=== PATIENT | female | born 1940 | race Caucasian/White ===

== ENCOUNTER 2021-10-12 13:50 | Inpatient (IN) | payer OTHER ==
[~2021-10-12] VITALS: Ht 160 cm; Wt 60.8 kg
--- NOTE | ~2021-10-12 | EMS ---
[address] [address] EMS Patient Care Report Name: LUNA TANG Room #: 217-P ADM IN M.R.#: [id number] Admission: 10/12/21 Attend Phys: Ronnell Darling MD Discharge: Date of : 44 Report #: [id number] THIS REPORT FOR: //name// Report Transmitted: 10/13/2021 15:04 EMS Care Summary [place], [place] Incident [id number] @ 10/12/2021 12:58 Incident Location [address] [facility] OFF[facility] Patient LUNA TANG Female, 81 Years 1940 Patient Address [address] [facility] [place] [address] Patient History Epilepsy,Hypertension (HTN),Parkinson's Disease,Constipation,Chronic Kidney Disease,Insomnia, Patient Allergies No known allergies, Patient Medications Keppra, Aspirin, Benadryl, Oxybutynin, Carbidopa, Chief Complaint HYPOTENSION Disposition Transported No Lights/[place] Dispatch Reason Sick Person Transported To [facility] Narrative M30 RESPONDED TO A SICK PERSON. ON SCENE M30 FOUND A 81 YR OLD FEMALE SITTING ON A WHEELCHAIR IN THE OFFICE AT THE JAIL. STAFF STATED THAT THE FEMALE [address] [address] EMS Patient Care Report Name: LUNA TANG Room #: 217-P [facility] IN [place].#: [id number] Admission: 10/12/21 Attend Phys: Ronnell Darling MD Discharge: Date of : 44 Report #: [id number] WAS GETTING A VITALS CHECK AND FOUND HER HYPOTENSIVE. FEMALE WAS A&0X1, WHICH PER STAFF IS NORMAL TO HER. PT WAS NOT IN ANY DISTRESS OR DISCOMFORT. NO TRAUMA OR BLEEDING NOTED OR REPORTED. STAFF ADDED THAT THE PT HAS KNOWN HYPERTENSION . FIRST RESPONDERES ON SCENE PERFORMED A [place] STROKE SCALE WITHOUT ANY SIGNIFICANT FINDINGS AT THE TIME. PT'S OXYGEN STATS WERE 85 % ON ROOM AIR. OXYGEN THERAPY WAS INITIATED. PT WAS CARRIED AND PLACE IN STRETCHER. PT WAS SECURED WITH SEATBELTS AND MOVED TO AMBULANCE. PT'S CONDITION REMAINED UNCHANGED IT WAS CLOSELY MONITORED DURING TRANSPORT TO [facility]. PT CARE WAS TRANSFERRED TO ER STAFF IN ROOM 04. PT WAS MOVED TO BED BY ER AND EMS STAFF. PT WAS LEFT IN BED WITH RAILS UP ND IN THELOCKED POSITION, AND UNDER RN CARE. Initial Vitals @13:31P: 74,BP: 53/39,SpO2: 85, @13:14P: 92,R: 16,BP: 70/46,Pain: 0/10,GCS: 15,SpO2: 75,Revised Trauma: 10, Assessments @13:07MENTAL:Person Oriented,SKIN:HEENT:Head/Face: No Abnormalities,LUNG SOUNDS:General: No Abnormalities,Left Upper: No Abnormalities,Right Upper: No Abnormalities,Left Lower: No Abnormalities,Right Lower: No Abnormalities,ABDOMEN:General: No Abnormalities,Left Upper: No Abnormalities,Right Upper: No Abnormalities,Left Lower: No Abnormalities,Right Lower: No Abnormalities,PELVIS//GI:No Abnormalities,EXTREMITIES:Left Arm: No Abnormalities,Right Arm: No Abnormalities,Left Leg: No Abnormalities,Right Leg: No Abnormalities,PULSE:NEURO:No Abnormalities, Impression Hypertension Procedures @13:07 ALS Assessment Response: UnchangedSucceeded @13:17 Oxygen FlowRate: 4 Device: Nasal Cannula (NC) Response: UnchangedSucceeded @13:21 IV Therapy - Saline Lock 0cc (22 ga) Site: Hand-Left Response: UnchangedFailed @13:19 3-Lead ECG Response: UnchangedSucceeded @13:20 IV Therapy - Saline Lock 0cc (22 ga) Site: Hand-Right Response: UnchangedFailed Timeline 12:57,Call Received 12:57,Dispatch Notified 12:58,Dispatched 12:59,En Route 13:05,[place] [address] EMS Patient Care Report Name: LUNA TANG Room #: 217-P ADM IN .R.#: [id number] Admission: 10/12/21 Attend Phys: Ronnell Darling MD Discharge: Date of : 44 Report #: [id number] 13:07,At Patient 13:07,ALS Assessment,Response: UnchangedSucceeded, 13:14,BP: 70/46 M,PULSE: 92,RR: 16 R,SPO2: 75 Ox,ETCO2: ,BG: ,PAIN: 0,GCS: 15, 13:17,Oxygen FlowRate: 4 Device: Nasal Cannula (NC) Response: UnchangedSucceeded, 13:19,3-Lead ECG,Response: UnchangedSucceeded, 13:20,IV Therapy - Saline Lock 0cc 22 ga Site: Hand-Right,Response: UnchangedFailed, 13:21,IV Therapy - Saline Lock 0cc 22 ga Site: Hand-Left,Response: UnchangedFailed, 13:31,BP: 53/39 M,PULSE: 74,RR: R,SPO2: 85 Ox,ETCO2: ,BG: ,PAIN: ,GCS: , 13:32,Depart Scene 13:45,At Destination 14:14,Call Closed Disclaimer v1.1 Copyright 2021 [employer] This EMS Care Summary contains data elements from the applicable legal record (which may be displayed differently). It is designed to provide pertinent information for the following purposes: continuity of care, clinical quality, and state data reporting. The complete legal record is available to ED staff and administrators of the receiving hospital in [employer] Patient Tracker. All data is provided "as is."
[2021-10-12 13:51] VITALS: BP 87/55
[2021-10-12] MEDS ORDERED: ASA81BEC PO (13:59)
[2021-10-12] MEDS ORDERED: BENADRYL25 MG PO (13:59)
[2021-10-12] MEDS ORDERED: CARBIDOPA-LEVO1 EAC9 PO (14:00)
[2021-10-12] MEDS ORDERED: SYNTHROID125 MC1 PO (14:00)
[2021-10-12] MEDS ORDERED: KEPPRA 500 MG500 MG PO (14:00)
[2021-10-12] MEDS ORDERED: MIRALAX17 G1 PO (14:00)
[2021-10-12] MEDS ORDERED: OXYBUTYNIN 5 MG5 M2 PO (14:01)
[2021-10-12] MEDS ORDERED: VITAMIN D325 MC3 PO (14:01)
[2021-10-12 14:26] LABS: ABSOLUTE NEUTROPHILS 5.7 thou/uL (1.4-8.2); BASOPHILS 1.1 % (0.0-2.0); EOSINOPHILS 0.1 % (0.0-3.0); HEMATOCRIT 35.4 % (37.0-47.0); HEMOGLOBIN 11.5 gm/dL (12.0-15.0); LYMPHOCYTES 17.6 % (24.0-44.0); MCH 31.9 pg (26.0-34.0); MCHC 32.5 g/dL (28.0-37.0); MONOCYTES 6.6 % (1.0-8.0); PLATELET COUNT 273 thou/uL (150-400); POLYS 74.6 % (36.0-66.0); RBC 3.61 mil/uL (4.20-5.00); RDW 20.6 % (10.5-14.5); WBC 7.6 thou/uL (4.0-11.0)
[2021-10-12 14:38] LABS: URINE BILIRUBIN NEGATIVE (Negative); URINE BLOOD 2+ (Negative); URINE CLARITY SL CLOUDY; URINE COLOR YELLOW; URINE GLUCOSE-RANDOM* NEGATIVE (Negative); URINE KETONES TRACE (Negative); URINE LEUKOCYTES-REFLEX NEGATIVE (Negative); URINE NITRITE-REFLEX NEGATIVE (Negative); URINE PROTEIN (DIPSTICK) 2+ (Negative); URINE SPECIFIC GRAVITY 1.025 (1.005-1.035); URINE UROBILINOGEN 0.2 E.U./dl (0.2-1.0)
[2021-10-12 14:46] LABS: CALCIUM 9.7 mg/dL (8.5-10.1); POTASSIUM 3.4 mmol/L (3.5-5.1)
[2021-10-12 14:47] LABS: ANISOCYTOSIS 1+; PLATELET ESTIMATE NORMAL
[2021-10-12 14:48] LABS: SQUAMOUS 4-10 Moderate /LPF (0-3)
[2021-10-12 14:49] LABS: URINE RBC 3-10 Few /HPF (NONE SEEN); URINE WBC-REFLEX 0-5 Rare /HPF (0-5)
[2021-10-12 14:50] LABS: CRYSTALS None Seen /LPF (None Seen); FINE GRANULAR CASTS 0-3 Few /LPF (None Seen); HYALINE CASTS 0-3 Few /LPF (None Seen)
[2021-10-12 14:54] LABS: ALBUMIN 3.3 g/dL (3.4-5.0); DIRECT BILIRUBIN 0.4 mg/dL (<0.1-0.2); TOTAL BILIRUBIN 1.5 mg/dL (0.2-1.0); TOTAL PROTEIN 6.7 g/dL (6.4-8.2)
--- NOTE | 2021-10-12 15:59 | EKG ---
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
[2021-10-12 18:22] VITALS: BP 107/65
[2021-10-12 18:40] VITALS: BP 115/78
[2021-10-12 19:00] VITALS: BP 133/69
[2021-10-13 00:10] VITALS: BP 135/65
[2021-10-13 03:55] VITALS: BP 136/69
[2021-10-13 05:48] LABS: HEMATOCRIT 25.3 % (37.0-47.0); MCH 31.8 pg (26.0-34.0); MCHC 33.3 g/dL (28.0-37.0); MCV 95.4 fL (80.0-100.0); RBC 2.65 mil/uL (4.20-5.00); RDW 18.3 % (10.5-14.5); WBC 5.7 thou/uL (4.0-11.0)
[2021-10-13 05:54] LABS: HEMOGLOBIN 8.4 gm/dL (12.0-15.0)
--- NOTE | 2021-10-13 06:12 | NUR ---
PT ADMITTED TO FROM ED, ARRIVED TO ROOM 217 AT APPROXIMATELY 1850 ACCOMPANIED BY ED STAFF. ADMISSION INFORMATION PROVIDED, ASSESSMENTS CHARTED. PT IS A&O TO SELF, IS VERY HARD OF HEARING. VSS THROUGHOUT THE SHIFT. PT IS INCONTINENT OF BLADDER AND BOWEL WITH NO AWARENESS OF SUCH. PUREWICK PLACED AND FUNCTIONING EFFECTIVELY. WILL CONTINUE TO OBSERVE FOR CHANGES.
[2021-10-13 06:13] LABS: CALCIUM 8.3 mg/dL (8.5-10.1); CREATININE 1.2 mg/dL (0.6-1.0)
[2021-10-13 06:31] LABS: POTASSIUM 2.4 mmol/L (3.5-5.1)
[2021-10-13 08:43] VITALS: BP 133/64
[2021-10-13 12:35] VITALS: BP 120/62
--- NOTE | 2021-10-13 13:45 | NUR ---
PATIENT ADMITTED FOR SEPSIS - HYPOTENSION, DEHYDRATION. CHART REVIEWED AND DISCUSSED WITH CARE TEAM. CM SPOKE TO PTS SON STACY VIA PHONE. CM ROLE INTRODUCED. PTS SON STACY [phone] REPORTS HE IS PTS FINANCIAL DPOA AND HIS SISTER NICOLE [phone] IS PTS HEALTHCARE DPOA. SON REPORTS HE WORKS IN [employer] AND [employer] AND KNOWS MOST TERMINOLOGY. SON LIVES HERE IN [place] AND SISTER NICOLE LIVES IN [place]. THEY FREQ COMMUNICATE WITH EACHOTHER AND IN AGREEMENT WITH PTS SHORT AND LONG CARE GOALS. PATIENT IN FROM [place] AND HAS ONLY BEEN IN FOR LESS THAN 1 WEEK. PTS SON BROUGHT PT TO TO BE CLOSER TO HER. WHILE IN [facility] AND PRIOR TO ADMISSION PT LIVED IN [facility]. PT HAS BEEN AT [facility] FOR 5 DAYS BEFORE BEING ADMITTED TO HOSPITAL. SON REPORTS PT IS WHEELCHAIR BOUND AND HAS SWALLOWING DIFFICULTIES. SON REPORTS PT EATS PUREED DIET AND THICKENED LIQUIDS. HE REPORTS THIS DIET IS FAIRLY RECENT SINCE HAVING SWALLOWING DIFFICULTIES AND SHE IS NOT ABLE TO KEEP ALOT OF FOOD DOWN. PT REQUIRES ASSIST WITH BATHING AND TOILETING. PTS SON REPORTS IS IN TOUCH WITH [facility] TO ARRANGE FOR LTC ONCE PT MEDICALLY STABLE TO DC. PTS SON REPORTS PT HAS [employer] UNTIL NOVEMBER 07 THEN WILL HAVE STRAIGHT MEDICARE NOVEMBER 07. PT HAS PT/OT ORDERS AND CM AWAITING RECOMMENDATIONS FROM THERAPY AND PHYSICIANS FOR FURTHER DC PLANNING. IT IS ANTICIPATED PT BE HERE THROUGH THE WEEKEND. CM FOLLOWING FOR DC PLANNING.
[2021-10-13 17:38] VITALS: BP 131/89
--- NOTE | 2021-10-13 17:51 | NUR ---
VASCULAR ACCESS NOTE PATIENT HAS POOR VASCULATURE. THERE HAVE MANY ATTEMPTS TO PLACE PIV'S THAT HAVE BEEN UNSUCESSFUL. PATIENTS SON VERBALLY CONSENTED FOR A MIDLINE CATHETER INSERTION. 4FR SL MIDLINE PLACED TO L BASILIC VEIN WITH US GUIDANCE. PATIENT TOLERATED PROCEDURE WELL. GUIDEWIRE REMOVED INTACT. LINE FLUSHES AND DRAWS EASILY. MIDLINE APPROVED FOR USE.
--- NOTE | 2021-10-13 18:32 | NUR ---
assumed care of pt at 0700. pt oriented to self, pleasant, cooperative. up to chair for most of day. incontinent at times. potassium replaced per protocol. ivf infusing per order. potassium to be redrawn this evening. no events on telemtry. son at bedside, updated on plan of car.e
[2021-10-13 19:34] VITALS: BP 141/81
[2021-10-14 04:42] VITALS: BP 135/62
[2021-10-14 06:04] LABS: HEMATOCRIT 26.1 % (37.0-47.0); HEMOGLOBIN 8.6 gm/dL (12.0-15.0); MCH 31.8 pg (26.0-34.0); MCV 96.5 fL (80.0-100.0); RBC 2.7 mil/uL (4.20-5.00); RDW 19.2 % (10.5-14.5); WBC 4.4 thou/uL (4.0-11.0)
[2021-10-14 06:29] LABS: CALCIUM 8.3 mg/dL (8.5-10.1); POTASSIUM 3.6 mmol/L (3.5-5.1)
[2021-10-14 09:01] VITALS: BP 123/62
--- NOTE | 2021-10-14 10:36 | NUR ---
ASSUMED PT CARE THIS AM. PT IS ALERT & ORIENTED X2 AND CONFUSE AT TIMES. PT HAS TELE MONITOR ON. PT HAS IV SITE ON AMANDA MIDLINE RUNNING D5 1/2 NS @100ML/HR. PT IS ON ROOM AIR. GIVEN SCHEDULED MEDICATIONS WITHOUT DIFFICULTIES THIS AM. PT HAS EXTERNAL CATH IN PLACE. PT ON THE BED WATCHING TV, BED ON THE LOWEST POSITION, SIDE RAILS UP, CALL LIGHT WITHIN REACH. WILL FOLLOW POC.
[2021-10-14 12:20] VITALS: BP 142/55
[2021-10-14 20:00] VITALS: BP 130/69
[2021-10-15 04:00] VITALS: BP 132/63
--- NOTE | 2021-10-15 06:17 | NUR ---
PROGRESS PT CONFUSED BUT NOT IMPULSIVE VSS, TELE INTACT. IVF'S INFUSING ORDERED TOLERATING PO FLUIDS IN SMALL AMOUNTS. PUREWICK IN PLACE DRAINING LARGE AMOUNT OF CLEAR YELLOW URINE. CONTINUE POC.
[2021-10-15 08:00] VITALS: BP 144/74
[2021-10-15 12:24] VITALS: BP 107/68
[2021-10-15 16:00] VITALS: BP 133/85
--- NOTE | 2021-10-15 17:29 | NUR ---
Pt is A&0x1, confused and forgetful but not impulsive. No complaints of pain. VS stable and afebrile. Pt's son was at bedside and daughter called to speak with pt. Pt had small emesis in AM; Zofran was given; pt has not had any episodes of nausea or vomiting. Pt has been sleeping, watching tv and resting in bed. No current concerns. Continue to monitor.
[2021-10-15 19:19] VITALS: BP 112/63
[2021-10-16 03:34] VITALS: BP 130/66
--- NOTE | 2021-10-16 07:38 | NUR ---
PT ALERT TO SELF, IMPULSIVE AND CONFUSED, REPOSITIONED REMAINS ON 2L NC, NO C/O PAIN, SLEPT MOST OF THE MORNING, PUR WIC EXTERNAL CATH WITH YELLOW URINE DRAINAGE, REPORT GIVEN TO NEXT SHIFT WILL CON'T TO MONITOR PER PPOC.
[2021-10-16 08:31] VITALS: BP 129/60
[2021-10-16 12:19] VITALS: BP 106/78
[2021-10-16 13:02] LABS: CALCIUM 8.9 mg/dL (8.5-10.1)
[2021-10-16 13:06] LABS: POTASSIUM 2.8 mmol/L (3.5-5.1)
[2021-10-16 16:00] VITALS: BP 117/75
--- NOTE | 2021-10-16 16:55 | NUR ---
CHART REVIEWED AND DISCUSSED WITH CARE TEAM. CM SPOKE TO PTS SON STACY VIA PHONE THIS DAY. PTS SON REPORTS HE SPOKE TO NABIL BLAS AND SHE HELPED ANSWER ALOT OF QUESTIONS. PTS SON REPORTS HE AND HIS SISTER NICOLE REPORT STEADY DECLINE SINCE PTS UTI. THEY WANT A PEG FOR NUTRITION BUT EXPLAIN THEY DEFER TO DRS FOR EXPERTISE AND APPRECIATE THEIR INPUT. AT THIS TIME STILL AWAITING GI CONSULT AND RECOMMENDATIONS FOR PEG PLACEMENT DECISION. NO DC PLANS AT THIS TIME. PTS SON DID REPORT BISHOP ALEJO WOULD BE FIRST CHOICE AND MAYA SNELL SECOND. CM FOLLOWING FOR DC PLANNING.
--- NOTE | 2021-10-16 17:19 | NUR ---
Pt was alert, awake and oriented to self in AM; pt sitting up in bed and watching tv. Pt worked with PT and was moved to chair. When I went in to give morning meds at 0950 pt was alert and stated that she wanted to return to bed. I stepped out to get apple sauce for her to swallow her meds and when i returned pt was unresponsive; VS were stable and BS was 91. MD assessed pt and determined that this may have been seizure like activity and ordered IVPG Keppra. After medication was given pt returned to baseline and was alert and following commands. Potassium replacement was given for low potassium lab values. Son was at bedside. GI has spoken with son. No current concerns. Continue to monitor.
[2021-10-16 20:08] VITALS: BP 133/62
[2021-10-17 03:12] VITALS: BP 105/52
[2021-10-17 07:54] LABS: ALBUMIN 2.2 g/dL (3.4-5.0); CALCIUM 9.3 mg/dL (8.5-10.1); CREATININE 1.1 mg/dL (0.6-1.0); MAGNESIUM 1.8 mg/dL (1.8-2.4); POTASSIUM 3.5 mmol/L (3.5-5.1); TOTAL BILIRUBIN 0.8 mg/dL (0.2-1.0); TOTAL PROTEIN 5.3 g/dL (6.4-8.2)
[2021-10-17 10:05] VITALS: BP 145/74
[2021-10-17 12:47] VITALS: BP 134/69
--- NOTE | 2021-10-17 15:43 | NUR ---
CM SPOKE TO PTS DAUGHTER NICOLE VIA PHONE THIS DAY. CM DISCUSSED CURRENT NURSING, PHYSICIAN, AND THERAPY RECOMMENDATIONS. DAUGHTER INDICATED SHE AND HER BROTHER FEEL THEY ARE GETTING CONFLICTING INFO REGARDING THEIR CARE THEREFORE, REQUESTING A CARE TEAM MEETING BETWEEN HERSELF, BROTHER, PHYSICIANS, NURSING, AND, CM. CM DISCUSSED WITH CM DIRECTOR WHO WILL ARRANGE. CM INFORMED PTS DAUGHTER IT IS BEING ARRANGED PER HER REQUEST. PTS DAUGHTER INFORMED CM HER AND HER BROTHER IN AGREEABLE IN PTS CARE AND FEEL IT MAY BE NECESSARY TO TRANSFER PT FOR A SECOND OPINION. DAUGHTER INDICATED SHE RESPECTS DRS RECOMMENDATIONS THEY JUST WANT CLARITY BEFORE DECIDING ON A SECOND OPINION. ULTIMATELY DAUGHTER INFORMED THEY PREFER PT TO HAVE A GTUBE AND NOT LET HER "STARVE". INFORMED PTS DAUGHTER CM WOULD ARRANGE CARE TEAM MTG WITH HER AND HER BROTHER AND WOULD CORESPOND VIA EMAIL WITH DETAILS OF THAT MEETING. DAUGHTER INDICATED SHE WOULD BE IN TOWN SATURDAY BUT AVAILABLE VIA PHONE SHOULD CARE TEAM MEETING HAPPEN TOMORROW. CM FOLLOWING FOR DC PLANNING.
[2021-10-17 16:38] VITALS: BP 135/70
[2021-10-17 17:11] VITALS: BP 133/73
--- NOTE | 2021-10-17 18:18 | NUR ---
DR GAYLE NOTIFIED ANESTHESIA WILL NOT BE AVAILABLE FOR 2 MORE HOURS. DECISION TO CANCEL ERCP AND ADD ON TOMORROW MADE. PT NOTIFIED. 4S YESSENIA ELLIOTT NOTIFIED PT CXL AND MAY HAVE LIGHT MEAL TONIGHT AND NPO AFTER MIDNIGHT PER DR GAYLE. VOICES UNDERSTANDING OF ABOVE. PT RETURNED TO RM 433 VIA BED IN STABLE CONDITION.
[2021-10-17 20:11] VITALS: BP 137/78
[2021-10-18 03:09] LABS: HEMATOCRIT 26.5 % (37.0-47.0); HEMOGLOBIN 8.7 gm/dL (12.0-15.0); MCH 31.2 pg (26.0-34.0); MCHC 32.7 g/dL (28.0-37.0); MCV 95.4 fL (80.0-100.0); RBC 2.78 mil/uL (4.20-5.00); RDW 19.5 % (10.5-14.5); WBC 5.2 thou/uL (4.0-11.0)
[2021-10-18 04:55] LABS: POTASSIUM 3.2 mmol/L (3.5-5.1)
[2021-10-18 05:16] LABS: CALCIUM 8.1 mg/dL (8.5-10.1); CREATININE 0.8 mg/dL (0.6-1.0); PHOSPHORUS 2.6 mg/dL (2.5-4.9)
--- NOTE | 2021-10-18 07:59 | NUR ---
ASSUME DPT CARE AT 1900.PT ALERT TO SELF.PT ON SWALOOW PRECAUTIONS,NPO.PT ON PPN.PT REPOSITIONED WHILE IN BED.BRUISING NOTED TO HER L ARM.PT HAD PERIODS OF APNEA DURING THE NIGHT.PT ON 2L/NC.REPORT TO AM NURSE.
[2021-10-18 08:00] VITALS: BP 141/87
--- NOTE | 2021-10-18 11:04 | NUR ---
A/O X 1 SELF, WILL ANSWER ALOT OF QUESTIONS WITH "YES OR NO", ROOM AIR, BEDBOUND, PT WORKED WITH HER AND SAID SHES MAX STAND AND PIVOT, LEFT UPPER ARM MIDLINE WITH PPN INFUSING CONT @ 80 MLS/HR, GIVEN IV KEPPA, INCONT B/B PURWICK IN PLACE-GERMAINE URINE NOTED, BILATERAL ARM BRUISES, LARGE RIGHT LEG RAISED BRUISE, SMALL BRUISES LOWER ABD FROM HEPARIN GIVEN FOR DVT PPX, 2 + BILATERAL LEG/FEET EDEMEA, NO PAIN NOTED, SEIZURE PRECAUTIONS.
--- NOTE | 2021-10-18 14:30 | NUR ---
TEAM MEETING HELD THIS DAY. PT'S SON, DTR, CM DIRECTOR, RN CM, SW CM, AND HOSPITALIST TOOK PART. DISCUSSION HAD REGARDING NEXT STEPS IN RELATION TO NURTITION SOURCES. PEG PLACEMENT DISCUSSED, APOLINAR MENTIONED AND THAT LTC FACILITIES WON'T TAKE PT'S WITH THEM. NICOLE AND STACY TO DISCUSS FURTHER AND INVOLVE PT TO THER EXTENT THEY ARE ABLE. NICOLE ON HER WAS TO [facility] NOW. [facility] TO FOLLOW UP TOMORROW.
[2021-10-18 19:28] VITALS: BP 163/91
--- NOTE | 2021-10-18 23:30 | NUR ---
pt is alert to self. asking for something to drink.[employer] running. Good output noted per osvaldo.Pt denies pain. Bruising noted to arms and legs. She seems restless, putting call light on,stated " i want to go to sleep".Pt kept comfortable as much as possible. She remains on room air. Does not appear to be in any distress. Seizure prec in place.
[2021-10-19 07:40] VITALS: BP 176/97
--- NOTE | 2021-10-19 11:52 | NUR ---
PT'S DTR NICOLE ARRIVED FROM [place] AND IS AT BEDSIDE. SHE SPOKE JENNIFER FREGOSO TO DO EGD THIS AM. CM TO FOLLOW UP WITH CARE TEAM AND FAMILY REGARDING DECISIONS ON NEXT STEPS AND GOALS OF CARE.
[2021-10-19 15:08] VITALS: BP 153/99
[2021-10-19 20:22] VITALS: BP 160/99
--- NOTE | 2021-10-19 20:41 | NUR ---
ASSUMED CARE OF PT AT 0700. PT ORIENTED TO TIME, BUT NOT PLACE OR SITUATION. PT SLIGHTLY DROWSY. DAUGHTER AT BEDSIDE. VS STABLE. NO CONCERNS AT THIS TIME.
[2021-10-20 03:39] VITALS: BP 172/90
[2021-10-20 04:00] LABS: ALBUMIN 1.7 g/dL (3.4-5.0); DIRECT BILIRUBIN 0.1 mg/dL (<0.1-0.2); TOTAL BILIRUBIN 0.8 mg/dL (0.2-1.0); TOTAL PROTEIN 4.4 g/dL (6.4-8.2)
--- NOTE | 2021-10-20 06:53 | NUR ---
PT RESTING THROUGHOUT THE NIGHT. INCONT. OF BOWEL AND BLADDER- ROLLS WELL IN BED. FLUIDS INFUSING PER ORDERS OVERNIGHT. PT SELF REMOVED MIDLINE THIS AM AT 0645. NO OTHER EVENTS
[2021-10-20 07:50] VITALS: BP 140/109
--- NOTE | 2021-10-20 08:29 | NUR ---
NIGHT RN REPORTS PT PULLED OUT MIDLINE. PAGE AND CALL IV TEAM TO START IV.
--- NOTE | 2021-10-20 11:51 | NUR ---
VAT CONSULTED FOR ML PT PULLED PREVIOUS LINE OUT. HAYDE BASILIC WAS WIDELY PATENT WITH USG.4FR POWER ML TRIMMED TO 15CM INSERTED WITH BRISK BR. ML RELEASED FOR IMMEDIATE USE PER PROTOCOL. PT TOLERATED WELL
--- NOTE | 2021-10-20 16:06 | NUR ---
I have reviewed the documentation by JOSÉ MIGUEL WORKMAN from 10/20/21 to 10/20/21 and I concur with it. AKASH GUTHRIE, PT, DPT
[2021-10-20 21:11] VITALS: BP 142/76
--- NOTE | 2021-10-21 05:10 | NUR ---
PT MORE INTERACTIVE OVERNIGHT. PT VOMITED SHORTLY AFTER TAKING PM MEDS- N/V RESOLVED WITH PRN TREATMENT. VSS, NO COMPLAINTS OF PAIN. MIDLINE REMAINS IN PLACE AT THIS TIME. MEDS GIVEN PER ORDERS
[2021-10-21 07:15] VITALS: BP 182/79
--- NOTE | 2021-10-21 18:11 | NUR ---
ASSUMED CARE OVER PATIENT THIS AM. COMPLAINT OF NAUSEA THIS MORNING, BUT SINCE RESOLVED WITH SCOPOLAMINE PATCH BEHIND LEFT EAR. PATIENT IS RESTING QUIETLY WIHT EYES CLOSED AND IS REFUSING TO EAT MEALS TODAY. SON AT BEDSIDE AT DINNER AND ABLE TO GET HER TO DRINK A FEW SIPS OF ENSURE. PATIENT BEING TRANFERED TO [address] PER STAFFING NEEDS.
[2021-10-21 21:49] VITALS: BP 148/81
[2021-10-22 05:27] LABS: HEMATOCRIT 22.1 % (37.0-47.0); HEMOGLOBIN 7.4 gm/dL (12.0-15.0); MCH 31.7 pg (26.0-34.0); MCHC 33.7 g/dL (28.0-37.0); RBC 2.35 mil/uL (4.20-5.00); RDW 18.9 % (10.5-14.5)
--- NOTE | 2021-10-22 05:51 | NUR ---
PT ORIENTED TO SELF. VSS. MIDLINE PRESENT & PATENT AT START OF SHIFT- WRAPPED TO DISCOURAGE INADERTANT REMOVAL. PT CONT. TO HAVE MINIMAL INTEREST IN FOOD. PT PERFORMING SELF TURN. 0130 PT FOUND DANGLING AT SIDE OF BED- HIGH FALL RISK RECAUTIONS IN PLACE- PT ALSO REMOVED MIDLINE AT THIS TIME. PT STATED "THE WRAP HURT WHEN I TRIED TO TAKE IT OFF" PT HAS BEEN RESTING WELL, INTERMITENTLY ATTEMPTING TO EXIT BED TO USE THE RESTROOM
[2021-10-22 05:59] LABS: CALCIUM 8.4 mg/dL (8.5-10.1); CREATININE 0.9 mg/dL (0.6-1.0)
[2021-10-22 06:03] LABS: POTASSIUM 2.6 mmol/L (3.5-5.1)
[2021-10-22 09:25] VITALS: BP 124/65
--- NOTE | 2021-10-22 16:39 | NUR ---
Patient is alert, awake, and orient to person, place and time. she know is in the hospital because she said she is sick. RN replaced her potassium, no pain. had a bedbath. Patient refused to eat breakfast, lunch, dinner. call light within reach, patient working on her [employer] book, will continous monitoring
[2021-10-22 17:09] VITALS: BP 148/80
--- NOTE | 2021-10-22 18:48 | NUR ---
maicol ate a slice of pizza for dinner
[2021-10-22 19:08] VITALS: BP 138/57
[2021-10-23 04:07] VITALS: BP 137/65
[2021-10-23 06:10] LABS: CALCIUM 8.4 mg/dL (8.5-10.1); CREATININE 0.9 mg/dL (0.6-1.0); PHOSPHORUS 2.7 mg/dL (2.5-4.9); POTASSIUM 3.1 mmol/L (3.5-5.1)
[2021-10-23 08:27] VITALS: BP 128/61
--- NOTE | 2021-10-23 11:47 | NUR ---
Dtr at bedside from [facility]. She reports patient now eating, she had espphgael stricture and erosion. Dtr questioned acute rehab. Dr Pichardo reports will not qualify. Reviewed with dtr acute rehab vs skilled care. Interest in referral to [facility] and [facility]. choice in that order. Discussed hospice care with dtr as she inquired. Reviewed hospice care in facility, home and hospice house.
[2021-10-23 18:12] VITALS: BP 140/75
--- NOTE | 2021-10-23 19:29 | NUR ---
Patient sleeping most of the day, take some medication, but vomitted after, replace with iv potassium. daughter at bedside. RN hold the heparin due to low hemoglobin. Patient did ate 2 bite of pizza for dinner, call light within reach, will continous monitoring.
[2021-10-23 23:07] VITALS: BP 156/93
[2021-10-24 05:59] VITALS: BP 140/61
[2021-10-24 09:00] VITALS: BP 138/67
--- NOTE | 2021-10-24 09:23 | NUR ---
RECEIVED CARE OF THIS PATIENT AT 1900. PATIENT ALERT AND ORIENTED TO SELF DONNA/ REMAINS ON BEDREST. CRUSHED MEDS AND PUT IN APPLESAUCE. PATIENT THEN FINISHED APPLESAUCE WITH LAST NIGHTS MEDS. REFUSED TO FINISH THIS AM. DENIES PAIN. SLEPT MOST OF NIGHT.
[2021-10-24] MEDS ORDERED: REMERON 30 MG T30 M1 PO (15:21)
--- NOTE | 2021-10-24 17:01 | NUR ---
[facility] on hold for admissions as they are opening a covid unit. Sp with [facility] who can accept. Updated dtr and son via text. They are in agreement with plan. Rec orders, faxed orders to [facility]. Chart copied. Jonny mon for 1700. No further needs
[2021-10-24 17:08] VITALS: BP 138/67
--- NOTE | 2021-10-24 17:39 | NUR ---
ATTEMPTED TO CALL REPORT TO [phone] AT APPROX. 430PM. WAS TOLD THAT I WOULD RECEIVE A CALL BACK. CM HERE TO COPY CHART. NO CHART FOUND. THIS WAS FIRST SHIFT CARING FOR PATIENT. SEARCHED PATIENT ROOM WITH NO CHART FOUND.
== END 2021-10-24 17:33 | DRG 177 ==
LOC: ER 13:50 → 2N 15:51 → EROBS 15:51 → 4W 15:51 → 4S 15:51 → 2N 18:39 → 4W 10-17 17:02 → 4S 10-21 17:59
PROVIDERS: Hospitalist; Nurse Practitioner; Student in an Organized Health Care Education/Training Program; ADMIT Hospitalist; ATTEND Hospitalist
PROC: 05HC33Z Insertion of Infusion Device into Left Basilic Vein, Percutaneous Approach (ICD-10-PCS; 2021-10-12)
PROC: 0D768ZZ Dilation of Stomach, Via Natural or Artificial Opening Endoscopic (ICD-10-PCS; principal; 2021-10-19)
DX: J69.0 Pneumonitis due to inhalation of food and vomit (principal); G93.41 Metabolic encephalopathy; N17.0 Acute kidney failure with tubular necrosis; E87.0 Hyperosmolality and hypernatremia; K21.00 Gastro-esophageal reflux disease with esophagitis, without bleeding; K22.2 Esophageal obstruction; I95.9 Hypotension, unspecified; E87.6 Hypokalemia; G40.909 Epilepsy, unspecified, not intractable, without status epilepticus; E86.0 Dehydration; K44.9 Diaphragmatic hernia without obstruction or gangrene; R63.0 Anorexia; G20 Parkinson's disease; F02.80 Dementia in other diseases classified elsewhere, unspecified severity, without behavioral disturbance, psychotic disturbance, mood disturbance, and anxiety; E53.8 Deficiency of other specified B group vitamins; Z68.23 Body mass index [BMI] 23.0-23.9, adult; Z88.8 Allergy status to other drugs, medicaments and biological substances; Z79.899 Other long term (current) drug therapy; D64.9 Anemia, unspecified; N18.9 Chronic kidney disease, unspecified
CPT/HCPCS: 10047; 10081; 10102; 27000; 62110; 62900; 70005